=== PATIENT | male | born 1990 | race Caucasian/White ===

== ENCOUNTER 2016-06-12 21:04 | Emergency (ER) | payer MEDICAID, OTHER ==
--- NOTE | 2016-06-12 21:22 | EDPHY ---
H & P Stated Complaint: sub sternal CP rad to L arm x90 min, SOB, vomiting; testicular /urinary pain HPI/ROS: CHIEF COMPLAINT: Chest pain, vomiting. HISTORY OF PRESENT ILLNESS: The patient is a 25-year-old male with a history of stomach ulcer who presents with vomiting for the past few weeks. He has had 1- 2 episodes per day. Today he also had associated chest pressure with left arm numbness. He denies trauma to his chest. He last vomited just before presentation. He reports being under a lot of personal stress lately and has been drinking more caffeine than usual. He had 7 energy drinks, 3 energy pills, and 3 cups of coffee today. He denies shortness of breath, headache, abdominal pain, or other complaints. His father had a heart attack in his 40s. At the time of my interview his left arm numbness has resolved. No arm or neck pain. He does not feel sick to his stomach. He reports lower substernal discomfort. He is not taking anything for previously diagnosed ulcer disease (endoscopy) and apparently has not taken acid blocking medications with any regularity. Nursing notes mention testicular/urinary symptoms. He denies recent urinary problems or testicular pain. REVIEW OF SYSTEMS: A ten point review of systems was performed and is negative with the exception of the items mentioned in the HPI. Source: Patient Exam Limitations: No limitations - Personal History Current Tetanus/Diphtheria Vaccine: Yes Current Tetanus Diphtheria and Acellular Pertussis (TDAP): Yes - Medical/Surgical History Hx Asthma: No Hx Chronic Respiratory Disease: No Hx Diabetes: No Hx Cardiac Disease: No Hx Renal Disease: No Hx Cirrhosis: No Hx Alcoholism: No Hx HIV/AIDS: No Hx Splenectomy or Spleen Trauma: No Other PMH: Depression. PUD. - Social History Smoking Status: Heavy smoker Alcohol Use: None Additional Social History: 1/2 pack per day smoker, no alcohol use, former polysubstance abuse, works in construction. - Physical Exam Exam: General Appearance: Alert. Vital signs reviewed. Blood pressure 149/96 at triage. Eyes: Pupils equal and round, no conjunctival injection, no discharge. Anicteric. ENT, Mouth: Mucous membranes are moist, no oropharyngeal erythema or edema. Neck: No lymphadenopathy, supple. No jugular venous distention. Respiratory: Lungs are clear to auscultation; no wheezes, rales, or rhonchi. Cardiovascular: Regular rate and rhythm; no murmur, rub, or gallop. Gastrointestinal: Abdomen is soft and nontender, no masses or organomegaly, bowel sounds normal. Skin: Warm and dry, no rashes on exposed skin, normal color. Back: Nontender to palpation over the thoracolumbar spine. No CVAT. Extremities: No lower extremity edema, no calf tenderness or swelling. Neurological: Alert and oriented. Moving all four extremities easily and equally. Sensation intact both upper extremities. Psychiatric: Slightly anxious. No agitation. Constitutional: Initial Vital Signs Temperature (C) 37 C 06/12/16 21:06 Heart Rate 99 06/12/16 21:06 Respiratory Rate 20 06/12/16 21:06 Blood Pressure 149/96 H 06/12/16 21:06 O2 Sat (%) 97 06/12/16 21:06 O2 Delivery Mode Room Air Allergies/Adverse Reactions: No Known Allergies Allergy (Unverified 06/12/16 21:10) Home Medications: Medication Instructions Recorded NK [No Known Home Meds] 06/12/16 Medical Decision Making - Diagnostics EKG Interpretation: The 12 lead EKG was interpreted by myself. See hard copy and/or "tracemaster" electronic copy for interpretation. Sinus rhythm rate 81. Imaging: Study: PA and Lateral Chest X-ray Indication: Chest pain Results: I viewed the images myself on the PACS system. The radiologist interpretation per Dr. Juarez, radiology, is: Normal. ED Course/Re-evaluation: An IV was established and labs ordered. EKG and chest x-ray obtained. This is a 25 year old male with history of depression and PUD who reports SSCP and left arm discomfort for past hour and a half. He has also had vomiting on and off for past couple of weeks. He is not taking anything for PUD. He has FH of early CAD in his father. This patient has consumed large quantity of caffeine today (see HPI) and is under a great deal of stress. He feels certain that his vomiting and chest/ upper abdomen pain is related to stress. We spoke at some length about his stress. I am recommending counseling. His girlfriend arrived in the ED and apparently there is some discord in the relationship. [facility] and to a PCP. He has taken antidepressants in the past, discontinued all medications about 8 months ago. CBC, chemistries, troponin, d-dimer, EKG, CXR all WNL. I doubt ACS, although troponin would likely not be elevated yet. His left arm pain has resolved and his chest/upper abdomen pain is improved. His HEART score is 0-1 (hypertension in ED, no known history of hypertension), giving him a 0.9 to 1.7% risk of adverse cardiac event and making him appropriate for outpatient work-up. He does not want to take any medications but has agreed to take an OTC acid patricia , such as Tagamet. Smoking cessation has been counseled. He is strongly advised to cut back or quit his caffeine intake. He knows that he should have his blood pressure re-checked by his PCP because it has been high in the ED. Differential Diagnosis: I considered a ddx of CAD/ACS, pneumothorax, infection such as pneumonia, PE, anxiety, PUD, gastritis, and pancreatitis plus effects of caffeine and stress. - Data Points Laboratory Results: Laboratory Results 06/12/16 22:36 06/12/16 22:36 Departure - Departure Disposition: Home, Routine, Self-Care Clinical Impression: Stress Chest pain Qualifiers: Chest pain type: other chest pain Qualified Code(s): R07.89 - Other chest pain Condition: Good Instructions: Chest Pain (ED), Stress (ED) Additional Instructions: 1. Take the tagamet regularly, as per the instructions on the packaging. 2. Stop drinking so many energy drinks. If you can decrease your caffeine intake that will help. 3. Do not take ibuprofen or other anti-inflammatory medications--they can worsen an ulcer. Use tylenol (acetominophen) 650 mg every 4 hours for pain if needed. 4. Think about talking with a counselor about your life stress. I am giving you contact information for [facility]. You can contact them about seeing a counselor. You can return to the emergency department at any time if you have recurrent chest pain, severe anxiety, persistent vomiting, abdominal pain, any new or troubling symptoms. Referrals: [facility] [Other] - As per Instructions [facility] [Outside] - As per Instructions Report Scribed for: Diana Oakes Report Scribed by: Sukhdeep Perez Date of Report: 06/12/16 Time of Report: 21:37 Physician Review and Approval Statement: 06/12/16 21:22 Portions of this note were transcribed by the medical director. I, Dr. Diana Oakes, personally performed the history, physical exam, and medical decision- making; and confirmed the accuracy of the information in the transcribed note.
[2016-06-12 22:45] LABS: % IMMATURE GRANULYOCYTES 0.2 % (0.0-1.1); ABSOLUTE IMMATURE GRANULOCYTES 0.02 10^3/uL (0.00-0.10); ADD DIFF? NO; ADD MORPH? NO; ADD SCAN? NO; ATYPICAL LYMPHOCYTE FLAG 30 (0-99); FRAGMENT RBC FLAG 0 (0-99); HEMATOCRIT 45.7 % (40.0-51.0); HEMOGLOBIN 16.5 g/dL (13.7-17.5); LEFT SHIFT FLG 0 (0-99); LIPEMIA HEMOLYSIS FLAG 90 (0-99); MEAN CELL HEMOGLOBIN 30.7 pg (27.9-34.1); MEAN CELL HEMOGLOBIN CONCENTR. 36.1 g/dL (32.4-36.7); MEAN CELL VOLUME 84.9 fL (81.5-99.8); MEAN PLATELET VOLUME 9.2 fL (8.7-11.7); PLATELET CLUMPS FLAG 0 (0-99); PLATELET COUNT 310 10^3/uL (150-400); RED BLOOD CELL COUNT 5.38 10^6/uL (4.40-6.38); RED CELL DISTRIBUTION WIDTH 13.1 % (11.5-15.2)
[2016-06-12 22:57] LABS: ANION GAP 14 mEq/L (8-16); CALCIUM 10.8 mg/dL (8.5-10.4); CARBON DIOXIDE 24 mEq/l (22-31); CHLORIDE 104 mEq/L (97-110); CREATININE 0.9 mg/dL (0.7-1.3); GLOMERULAR FILTRATION RATE > 60; GLUCOSE 89 mg/dL (70-100); POTASSIUM 3.7 mEq/L (3.5-5.2); SODIUM 142 mEq/L (134-144)
[2016-06-12 23:08] LABS: TROPONIN I < 0.012 ng/mL (0-0.034)
[2016-06-12 23:18] VITALS: RESP 16
[2016-06-12 23:54] VITALS: BP 152/78; PULSE 78; TEMP 98.2; O2SAT 97
--- NOTE | 2016-06-13 10:37 | CPEKG ---
Heart Rate: 81 RR Interval: 741 P-R Interval: 152 QRSD Interval: 96 QT Interval: 356 QTC Interval: 414 P Addington: 49 QRS Addington: 41 T Wave Addington: 51 EKG Severity - NORMAL ECG - EKG Impression: SINUS RHYTHM Electronically Signed By: Devyn Sam 18-Jun-2016 16:34:42
== END 2016-06-12 23:54 | disposition home or self-care (01) ==
DX: R07.89 Other chest pain (principal); F43.9 Reaction to severe stress, unspecified; F17.200 Nicotine dependence, unspecified, uncomplicated

== ENCOUNTER 2016-09-12 09:37 | Emergency (ER) | payer MEDICAID, OTHER ==
[2016-09-12 09:42] VITALS: PULSE 70; TEMP 98.4
[2016-09-12] MEDS ORDERED: HYDROCODONE/APAP 5/325 TAB PO ONE (10:28)
[2016-09-12] MEDS ORDERED: IBUPROFEN 600 MG TAB PO ONE (10:28)
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
[2016-09-12 10:56] VITALS: BP 131/78; RESP 14; O2SAT 94
== END 2016-09-12 10:54 | disposition home or self-care (01) ==
DX: S00.12XA Contusion of left eyelid and periocular area, initial encounter (principal); F17.200 Nicotine dependence, unspecified, uncomplicated; W22.8XXA Striking against or struck by other objects, initial encounter; Y92.69 Other specified industrial and construction area as the place of occurrence of the external cause; Y99.0 Civilian activity done for income or pay; Y93.89 Activity, other specified

== ENCOUNTER 2018-07-16 01:26 | Emergency (ER) | payer MEDICAID ==
[2018-07-16] MEDS ORDERED: ACETAMINOPHEN 500 MG TAB PO ONE (02:01)
[2018-07-16] MEDS ORDERED: IBUPROFEN 200 MG TAB PO ONE (02:01)
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
[2018-07-16 03:31] VITALS: BP 146/74
== END 2018-07-16 03:31 | disposition home or self-care (01) ==
LOC: EDUNIT#
DX: Z02.89 Encounter for other administrative examinations (principal); H93.12 Tinnitus, left ear; S40.212A Abrasion of left shoulder, initial encounter; T74.11XA Adult physical abuse, confirmed, initial encounter

== ENCOUNTER 2018-07-18 19:45 | Emergency (ER) | payer MEDICAID ==
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
[2018-07-18] MEDS ORDERED: LORazepam 2 MG/ML INJ ONE (20:37)
[2018-07-18] MEDS ORDERED: LORazepam 2 MG/ML INJ IVP ONE (20:43)
[2018-07-18 20:46] LABS: PLATELET COUNT 363 10^3/uL (150-400)
[2018-07-19] MEDS ORDERED: CALCIUM CARBONATE 500 MG CHEWABLE TAB PO ONE (07:21)
[2018-07-19] MEDS ORDERED: ACETAMINOPHEN 325 MG TAB ONE (07:22)
[2018-07-19] MEDS ORDERED: CALCIUM CARBONATE 500 MG CHEWABLE TAB PO PRN (07:38)
[2018-07-19] MEDS ORDERED: ACETAMINOPHEN 160 MG/5 ML UDCUP PO ONE (07:38)
[2018-07-19 08:11] VITALS: BP 114/74
--- NOTE | 2018-07-19 08:55 | ASMTTCLDSP ---
[facility] Discharge Disposition Disposition: Answers: Discharge If Answers: Yes DISCHARGED: Patient/family given suicide hotline info & [employer] brochure? Disposition Notes: Notes: Pt stated commitment or ability to keep self safe, denied thoughts of self harm or harm to others. Pt expressed a desire to f/u with his next therapist appointment later today at 5:40 pm at [facility]. Pt was given local hotline information and [employer] brochure After an Attempt and encouraged to follow up with therapist appointment and was given literature to Withdrawal Management/[facility] for his drinking problem. Discharge Concerns/Recommendations: Notes: In consultation with [facility] ED physician, Rishi Pratt MD, and on-call psychiatrist, Mahamed Morris MD, both concurred that pt does not appear to meet 27-65 criteria requiring psychiatric hospitalization as pt does not appear to be an imminent risk of harm to self/others/gravely disabled due to a mental illness condition. Dr. Pratt provided verbal order read back vacating M1 hold at 0745 hrs. Was patient given the Answers: Not applicable Inpatient Behavioral Health Prohibited Belongings List while in the ED? Psychiatrist vacating M1 Rishi Pratt MD Hold: Date and time M1 hold 07/19/2018 07:45 AM vacated (time format is hh:mm): Type of Hold: Answers: M1/72-hour Hold Hold initiated by: Answers: Police Date Signed: 07/19/2018 08:55 AM Electronically Signed By:Shlomo Villavicencio
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
== END 2018-07-19 08:18 | disposition home or self-care (01) ==
DX: R45.851 Suicidal ideations (principal); F10.920 Alcohol use, unspecified with intoxication, uncomplicated; F32.9 Major depressive disorder, single episode, unspecified; I10 Essential (primary) hypertension
CPT/HCPCS: 80305; 96374; G0480; J2060